=== PATIENT | female | born 1955 | race Caucasian/White ===

== ENCOUNTER → 2023-08-22 09:01 | Outpatient (REF) | payer MEDICARE, OTHER, SELFPAY | LOC: RAD 09:01 | PROVIDERS: ATTENDING PHYSICIAN Nurse Practitioner Adult Health | DX: M25.512 Pain in left shoulder (principal) | CPT/HCPCS: 73030 ==

== ENCOUNTER 2023-09-26 04:09 | Emergency (ER) | payer MEDICARE, OTHER, SELFPAY ==
[2023-09-26 04:10] VITALS: BP 170/102
[2023-09-26 04:27] VITALS: BMI 39.2
[2023-09-26 04:31] VITALS: BP 162/77
[2023-09-26] MEDS: NSS 1000 IV (04:32)
[2023-09-26] MEDS: ZOFRAN 4 MG IV (04:40)
[2023-09-26] MEDS: TORADOL 30 MG IV (04:40)
[2023-09-26 04:43] LABS: % Basophils 0.6 % (0-2); % Eosinophils 3.1 % (0-6); % Immature Granulocytes 0.4 % (0-0.5); % Lymphocytes 25.1 % (20.5-51.1); % Monocytes 9.8 % (1.7-9.3); Absolute Basophils 0.1 10^3/uL (0-0.2); Absolute Eosinophils 0.3 10^3/uL (0-0.7); Absolute Lymphocytes 2.5 10^3/uL (1.2-3.4); Absolute Neutrophils 6.1 10^3/uL (1.4-6.5); Hematocrit 41.5 % (37.0-47.0); Mean Corp Hgb Conc. 33.7 g/dL (33.0-37.0); Mean Corpuscular Hgb 30.4 pg (27.0-31.0); Mean Corpuscular Volume 90.2 fL (81.0-99.0); Mean Platelet Volume 9.2 fL (7.4-10.4); Nucleated Red Blood Cells % 0 %; Platelet Count 261 10^3/uL (130-400); Red Cell Dist. Width 13.4 % (11.5-14.5)
[2023-09-26 04:44] LABS: Urine Albumin Negative (Neg - Trace); Urine Bilirubin Negative (Negative); Urine Character Clear (Clear); Urine Color Yellow; Urine Glucose Negative (Negative); Urine Ketone Negative (Negative); Urine Leukocyte Trace (Negative); Urine Nitrite Negative (Negative); Urine Occult Blood 2+ (Negative); Urine Urobilinogen Negative (Neg - 1+)
--- NOTE | 2023-09-26 04:45 | ED.GENMED ---
Addendum entered and electronically signed by Cedrick Richardson PA-C 09/28/23 07:18:
Urine culture positive for greater than 100,000 colony-forming units of E. coli. Patient has many antibiotic allergies many of which include an anaphylactic reaction. Patient cannot tolerate sulfa even though it is not listed on her chart.
Patient know she can tolerate doxycycline. Will prescribe this pending sensitivities.
Original Note:
History of Present Illness
<ADRIÁN Lemus - Last Filed: 09/26/23 04:58>
General
Chief Complaint: Flank Pain
Source: patient
Exam Limitations: none
Time Seen by Provider: 09/26/23 04:37
Nursing documentation reviewed up to this point in time: agreed with
Travel History
Have you had any contact with someone who has COVID-19?: No
Do you have any symptoms of coronavirus? Fever > 100 degrees, chills, cough, shortness of breath, sore throat, loss of taste or smell, muscle aches, or headache?: No
History of Present Illness
History of Present Illness:
patient is a 68 y/o female with pmh of HTN presenting with flank pain x 10 hours. Patient states the pain is localized to the left flank. Patient states the pain comes and goes and does not radiate. patient admits she was at work when the pain
suddenly came on. Patient admits to taking advil with no help. Patient admits to associated nausea with no episodes of vomiting. Patient admits to associated chills but never took temperature at home. Patient denies change in diet or medications.
Patient admits to a history of kidney stones. Patient denies dysuria, blood in the urine, V/D/C, SOB, CP, AL. patient denies smoking or alcohol in the last 48 hrs.
Past History
<ADRIÁN Lemus - Last Filed: 09/26/23 04:58>
Past History
ED Past Medical History: Asthma (Asthmatic bronchitis), HTN, Seizures (only in teens around her menses, none since. Never on medication for seizures) and Other (Obstructive sleep apnea)
ED Past Surgical History: Cholecystectomy and Gynecological
Social History
Tobacco: Smoker
Alcohol: None
Personal:
Living: with family
Employment: Employed
Family History
Family History: Other (Noncontributory)
Review of Systems
<ADRIÁN Lemus - Last Filed: 09/26/23 04:58>
Review of Systems
Constitutional: Reports chills
Respiratory: Reports no symptoms
Cardiac: Reports no symptoms
ABD/GI: Reports no symptoms
: Reports flank pain
Phy Exam
<ADRIÁN Lemus - Last Filed: 09/26/23 04:58>
General Physical Exam
General Presentation: well appearing and no apparent distress
General Skin: warm and dry
General Habitus: normal
General Mental: alert
General Hydration: appears well hydrated
ENT Exam
ENT Exam: EOMI, pharynx normal, neck supple and normocephalic
Eye Exam
Eye Exam: PERRL, cornea clear and conjunctiva normal
Cardiovascular Exam
Cardiovascular Exam: regular rate/rhythm, no edema, no murmur and normal peripheral pulses
Pulmonary Exam
Pulmonary Exam: lungs clear, no respiratory distress, no rales, no crackles, no rhonchi, no stridor, no wheezing and no cough
Gastrointestinal Exam
Gastrointestinal Exam: normal bowel sounds, non tender, soft, no organomegaly, no pulsatile mass and non distended
Genitourinary Exam Female
Exam Female: other (CVA tenderness)
Neurological Exam
Neurological Exam: alert, oriented x3, no motor deficits and speech normal
Musculoskeletal Exam
Musculoskeletal Exam: full ROM and no edema
Skin Exam
Skin Exam: normal color, warm/dry, no rash and no petechia
Psychiatric Exam
Psychiatric Exam: normal mood/affect
Course
<ST AllanNY - Last Filed: 09/26/23 04:58>
Orders/Labs/Results
Orders:
Orders
09/26/23 04:30
CMP [Comprehensive Metabolic Panel] Urgent
Complete Blood Count/With Diff Urgent
Urinalysis Reflex To Culture Urgent
Date Specimen was Collected: 09/26/23
Time Specimen was Collected: 04:23
Urine Microscopic Reflex Cult Urgent
Urine Culture Urgent
TIM Source: U
Specimen Description:
Date Specimen was Collected: 09/26/23
Time Specimen was Collected: 04:23
09/26/23 04:32
0.9% Sodium Chloride 1000 ml [Nss] 1,000 ml IV BOLUS
09/26/23 04:36
Ketorolac [Toradol] 30 mg IV NOW STA
Ondansetron Injectable [Zofran] 4 mg IV NOW STA
09/26/23 04:37
CT Abd/pel Without Iv Or Oral Urgent
Comment:
Reason For Exam: left flank pain
Abnormal Lab Results
09/26/23
04:30
Absolute Monos (auto) 1.0 H 10^3/uL
(0.1-0.6)
Monocytes % 9.8 H %
(1.7-9.3)
Glucose 127 H mg/dl
(70-99)
Ur Occult Blood Reflex 2+ A
(Negative)
Leukocyte Esterase Rfl Trace A
(Negative)
Urine RBC 16-20 A /HPF
(0-2)
Urine Bacteria (Reflex) Moderate A
(Negative)
09/26/23 04:30
09/26/23 04:30
Vital Signs
Initial and Last Documented VS:
Initial Vital Signs
Temp Pulse Resp BP Pulse Ox
97.4 F 74 24 170/102 98
09/26/23 04:10 09/26/23 04:10 09/26/23 04:10 09/26/23 04:10 09/26/23 04:10
Last Documented Vital Signs
Temp Pulse Resp BP Pulse Ox
97.4 F 70 18 144/76 97
09/26/23 04:10 09/26/23 05:30 09/26/23 05:30 09/26/23 05:30 09/26/23 05:30
<Shanita Mcrae, DO - Last Filed: 09/26/23 05:57>
Orders/Labs/Results
Orders:
Orders
09/26/23 04:30
CMP [Comprehensive Metabolic Panel] Urgent
Complete Blood Count/With Diff Urgent
Urinalysis Reflex To Culture Urgent
Date Specimen was Collected: 09/26/23
Time Specimen was Collected: 04:23
Urine Microscopic Reflex Cult Urgent
Urine Culture Urgent
TIM Source: U
Specimen Description:
Date Specimen was Collected: 09/26/23
Time Specimen was Collected: 04:23
09/26/23 04:32
0.9% Sodium Chloride 1000 ml [Nss] 1,000 ml IV BOLUS
09/26/23 04:36
Ketorolac [Toradol] 30 mg IV NOW STA
Ondansetron Injectable [Zofran] 4 mg IV NOW STA
09/26/23 04:37
CT Abd/pel Without Iv Or Oral Urgent
Comment:
Reason For Exam: left flank pain
Abnormal Lab Results
09/26/23
04:30
Absolute Monos (auto) 1.0 H 10^3/uL
(0.1-0.6)
Monocytes % 9.8 H %
(1.7-9.3)
Glucose 127 H mg/dl
(70-99)
Ur Occult Blood Reflex 2+ A
(Negative)
Leukocyte Esterase Rfl Trace A
(Negative)
Urine RBC 16-20 A /HPF
(0-2)
Urine Bacteria (Reflex) Moderate A
(Negative)
09/26/23 04:30
09/26/23 04:30
Vital Signs
Initial and Last Documented VS:
Initial Vital Signs
Temp Pulse Resp BP Pulse Ox
97.4 F 74 24 170/102 98
09/26/23 04:10 09/26/23 04:10 09/26/23 04:10 09/26/23 04:10 09/26/23 04:10
Last Documented Vital Signs
Temp Pulse Resp BP Pulse Ox
97.4 F 70 18 144/76 97
09/26/23 04:10 09/26/23 05:30 09/26/23 05:30 09/26/23 05:30 09/26/23 05:30
<ADRIÁN Lemus - Last Filed: 09/26/23 04:58>
MDM/Problems Addressed
Differential Diagnosis Includes:
kidney stone
pyelonephritis
muscle strain
MDM/Problems Addressed:
flank pain
<ADRIÁN Lemus - Last Filed: 09/26/23 04:58>
*Critical Care Note
Total Time (30-74mins, 75-104mins- exclusive of procedures): Not Applicable
<Shanita Mcrae DO - Last Filed: 09/26/23 05:57>
*Radiology
Radiology exam reviewed: radiology read reviewed
*Pulse Oximetry
Patient hypoxic: no
ED Attending Note
<ADRIÁN Lemus - Last Filed: 09/26/23 04:58>
-
Portions of this chart may have been created with voice recognition software.� Occasional wrong word or��sound alike� substitutions may have occurred due to the inherent limitations of voice recognition software.
<Shanita Mcrae, DO - Last Filed: 09/26/23 05:57>
ED Attending Note
Patient seen and examined by attending physician: Yes
I performed the substantive portion of visit, reviewed & personally made and approve the management plan that is documented in note by myself or ROB.: Yes
I performed a history and physical exam of patient and discussed management with resident, I reviewed resident's note and agree with documented findings and plan of care.: Yes
ED Attending Note:
This is a 68-year-old woman who has prior history of kidney stones who complains of left flank pain that began mildly yesterday evening, she took a dose of ibuprofen around 6 PM. She then awoke around 3 AM with acute left flank pain that has been
persistent accompanied with nausea without vomiting. Left flank pain feels similar to previous episodes of renal colic. She has had no fever, no dysuria and urgency and or hematuria. She does admit to feeling somewhat restless, unable to find a
comfortable position. Unclear if movement worsens her left flank pain. She denies injury nor fall.
GENERAL: Alert , in no apparent distress
EYE: anicteric. brown nevus right upper eyelid
NECK: Supple, nontender, no meningismus, no significant adenopathy.
ENT: oral mucosa is moist. No rhinorrhea.
CARDIAC: Regular rate and rhythm. no murmur.
LUNGS: Clear breath sounds bilaterally, no acute respiratory distress, no wheezes/rales/rhonchi
ABDOMEN: Soft, nondistended, without focal tenderness, no r/g, mild to moderate left CVA tenderness to percussion. Normoactive BS.
NEUROLOGICAL: Alert and oriented x3, no focal neuro deficits. Gait is steady.
SKIN: Warm and dry, normal color, skin intact. No rash.
MUSCULOSKELETAL: No C/C/E. peripheral pulses are full and equal b/l. No palpable tenderness.
PSYCH: Normal and appropriate interaction.
Concern for acute left renal colic, left ureteric stone. Other consideration is pyelonephritis, musculoskeletal pain.
Will medicate for pain and nausea.
Labs are pending as is urinalysis.
Will check CT abdomen and pelvis.
09/26/2023 0545 AM
Patient is much more comfortable after Toradol and no further nausea.
CAT scan shows a questionable 1 mm stone at the left UVJ versus artifact, no proximal ureteral stone nor hydronephrosis.
Labs are unremarkable. Urinalysis does show +2 blood, 16-20 RBCs, moderate bacteria but only 6-10 WBCs and greater than 30 squamous epithelial cells more consistent with contaminant.
Due to hematuria patient could potentially have a tiny distal stone but with no evidence of hydronephrosis, renal colic/left flank pain is more suspected. This may be musculoskeletal pain in nature.
Recommend she stay well-hydrated on a daily basis, will treat renal colic versus musculoskeletal pain with a short course of Toradol.
Prompt follow-up with PCP for recheck.
Discharge Plan
Departure
Patient Disposition: Home (Routine Discharge)
Date of Disposition: 09/26/23
Time of Disposition: 05:50
Patient with high blood pressure during this ER visit?: No
Condition: Good
Discharge Problem:
Calculus of distal left ureter, Acute left flank pain
Instructions: Kidney Stones (DC), Flank Pain (DC)
Prescriptions:
New
ketorolac 10 mg tablet
10 mg PO QID PRN (Reason: pain) Qty: 20 0RF
ondansetron 4 mg tablet,disintegrating
4 mg PO QID PRN (Reason: nausea and vomiting) Qty: 20 0RF
No Action
amlodipine 5 MG tablet
5 mg PO DAILY
Referrals:
Lidia Noe CRNP [Family Provider] - Call in 1-3 days for appt
Interventions
Interventions:
*Risk Screen - Suicide Last Done: 09/26/23 04:10
*General Assessment Last Done: 09/26/23 04:22
*Neglect/Abuse Screening Last Done: 09/26/23 04:10
ED- Fall Risk Assessment Last Done: 09/26/23 04:55
*ED COVID-19 Vaccine History Last Done: 09/26/23 04:22
WM-Cbkakz-Zqgilkweim Assessment Last Done: 09/26/23 04:55
ED-Female Genitourinary Assessment Last Done: 09/26/23 04:55
[2023-09-26 04:57] LABS: ALT (SGPT) 20 U/L (0-35); AST (SGOT) 27 U/L (14-36); Albumin 4.3 g/dl (3.5-5.0); Alkaline Phosphatase 83 U/L (38-126); Blood Urea Nitrogen 17 mg/dl (7-17); Calcium 9.5 mg/dl (8.4-10.2); Carbon Dioxide 26 mmol/L (22-30); Chloride 106 mmol/L (98-107); Estimated Creatinine Clearance 85 ml/min; Glucose 127 mg/dl (70-99); Potassium 3.9 mmol/L (3.5-5.1); Sodium 138 mmol/L (135-145); Total Bilirubin 0.4 mg/dl (0.2-1.3); Total Protein 6.9 g/dl (6.3-8.2); eGFR > 60.00
[2023-09-26 04:59] LABS: Urine Squamous Cell >30 /LPF (Few)
[2023-09-26 05:08] LABS: Urine Bacteria Moderate (Negative); Urine Red Blood Cell 16-20 /HPF (0-2)
[2023-09-26 05:30] VITALS: BP 144/76
== END 2023-09-26 06:06 | disposition home or self-care (01) ==
LOC: EMR 04:09
PROVIDERS: EMERGENCY PHYSICIAN Emergency Medicine; FAMILY PHYSICIAN Nurse Practitioner Adult Health
DX: N20.2 Calculus of kidney with calculus of ureter (principal); R10.9 Unspecified abdominal pain; I10 Essential (primary) hypertension; J45.909 Unspecified asthma, uncomplicated; G40.909 Epilepsy, unspecified, not intractable, without status epilepticus; F17.200 Nicotine dependence, unspecified, uncomplicated; Z87.442 Personal history of urinary calculi; Z90.49 Acquired absence of other specified parts of digestive tract
CPT/HCPCS: 99284; 96374; 96375; 96361; 74176; 80053; 81003; 81015; 85025; 87077; 87086; 87186

== ENCOUNTER → 2023-12-20 07:01 | Outpatient (REF) | payer MEDICARE, OTHER, SELFPAY ==
[2023-12-20 07:52] LABS: % Basophils 0.9 % (0-2); % Immature Granulocytes 0.3 % (0-0.5); % Lymphocytes 26.4 % (20.5-51.1); % Monocytes 9.1 % (1.7-9.3); % Neutrophils 60.3 % (42.2-75.2); Absolute Basophils 0.1 10^3/uL (0-0.2); Absolute Eosinophils 0.2 10^3/uL (0-0.7); Absolute Lymphocytes 1.8 10^3/uL (1.2-3.4); Absolute Monocytes 0.6 10^3/uL (0.1-0.6); Absolute Neutrophils 4.1 10^3/uL (1.4-6.5); Hematocrit 40.9 % (37.0-47.0); Hemoglobin 13.8 g/dL (12.0-16.0); Mean Corp Hgb Conc. 33.7 g/dL (33.0-37.0); Mean Corpuscular Hgb 29.9 pg (27.0-31.0); Mean Corpuscular Volume 88.7 fL (81.0-99.0); Mean Platelet Volume 9.5 fL (7.4-10.4); Nucleated Red Blood Cells % 0 %; Platelet Count 246 10^3/uL (130-400); Red Blood Cell Count 4.61 10^6/uL (4.20-5.40); Red Cell Dist. Width 13.4 % (11.5-14.5); White Blood Cell Count 6.7 10^3/uL (4.8-10.8)
[2023-12-20 08:30] LABS: ALT (SGPT) 21 U/L (0-35); AST (SGOT) 28 U/L (14-36); Albumin 3.9 g/dl (3.5-5.0); Alkaline Phosphatase 57 U/L (38-126); Blood Urea Nitrogen 16 mg/dl (7-17); Calcium 9.9 mg/dl (8.4-10.2); Carbon Dioxide 26 mmol/L (22-30); Chloride 106 mmol/L (98-107); Glucose 105 mg/dl (70-99); HDL Cholesterol 62 mg/dl; LDL Cholesterol, Calculated 16 mg/dl; Potassium 4.4 mmol/L (3.5-5.1); Sodium 139 mmol/L (135-145); Total Bilirubin 0.5 mg/dl (0.2-1.3); Total Cholesterol 100 mg/dl (50-199); Total Protein 6.5 g/dl (6.3-8.2); Triglyceride 111 mg/dl (10-149); Very Low Density Lipoprotein 22 mg/dl (0-30); eGFR > 60.00
[2023-12-20 08:39] LABS: Glycohemoglobin (HgbA1c) 6.1 % (4.0-5.6)
[2023-12-20 08:42] LABS: Vitamin D, 25-OH*** 26.4 ng/mL (30-80)
[2023-12-20 08:55] LABS: TSH Reflex To Free T4 2.31 uIU/ml (0.47-4.68)
== END ==
LOC: REG 07:01
PROVIDERS: ATTENDING PHYSICIAN Nurse Practitioner Adult Health
DX: Z00.00 Encounter for general adult medical examination without abnormal findings (principal); Z79.899 Other long term (current) drug therapy; Z13.29 Encounter for screening for other suspected endocrine disorder; E55.9 Vitamin D deficiency, unspecified; R73.01 Impaired fasting glucose; I10 Essential (primary) hypertension
CPT/HCPCS: 36415; 80053; 80061; 82306; 83036; 84443; 85025

== ENCOUNTER → 2024-04-03 13:03 | Outpatient (REF) | payer MEDICARE, OTHER, SELFPAY | LOC: WDC 13:03 | PROVIDERS: ATTENDING PHYSICIAN Nurse Practitioner Adult Health | DX: Z00.00 Encounter for general adult medical examination without abnormal findings (principal); Z12.31 Encounter for screening mammogram for malignant neoplasm of breast; M81.0 Age-related osteoporosis without current pathological fracture | CPT/HCPCS: 77063; 77067; 77080 ==

== ENCOUNTER → 2024-04-14 11:05 | Outpatient (REF) | payer MEDICARE, OTHER, SELFPAY | LOC: MRI 3T 11:05 | PROVIDERS: ATTENDING PHYSICIAN Nurse Practitioner Adult Health | DX: M25.512 Pain in left shoulder (principal); Z00.00 Encounter for general adult medical examination without abnormal findings | CPT/HCPCS: 73221 ==

== ENCOUNTER → 2025-05-08 07:46 | Outpatient (REF) | payer MEDICARE, OTHER, SELFPAY ==
[2025-05-08 09:43] LABS: Hematocrit 45.0 % (37.0-47.0); Hemoglobin 14.6 g/dL (12.0-16.0); Mean Corp Hgb Conc. 32.4 g/dL (33.0-37.0); Mean Corpuscular Volume 92.6 fL (81.0-99.0); Nucleated Red Blood Cells % 0 %; Platelet Count 286 10^3/uL (130-400); Red Cell Dist. Width 13.2 % (11.5-14.5)
[2025-05-08 10:42] LABS: ALT (SGPT) 22 U/L (0-35); AST (SGOT) 24 U/L (14-36); Albumin 4.2 g/dl (3.5-5.0); Alkaline Phosphatase 60 U/L (38-126); Blood Urea Nitrogen 16 mg/dl (7-17); Calcium 9.5 mg/dl (8.4-10.2); Carbon Dioxide 30 mmol/L (22-30); Chloride 103 mmol/L (98-107); Glucose 111 mg/dl (70-99); HDL Cholesterol 65 mg/dl; LDL Cholesterol, Calculated 35 mg/dl; Potassium 4.7 mmol/L (3.5-5.1); Sodium 141 mmol/L (135-145); Total Protein 6.8 g/dl (6.3-8.2); Very Low Density Lipoprotein 27 mg/dl (0-30); eGFR > 60.00
[2025-05-08 15:20] LABS: Vitamin D, 25-OH*** 68.4 ng/mL (30-80)
== END ==
LOC: REG 07:46
PROVIDERS: ATTENDING PHYSICIAN Nurse Practitioner Adult Health
DX: I10 Essential (primary) hypertension (principal); E55.9 Vitamin D deficiency, unspecified; R73.03 Prediabetes; R73.01 Impaired fasting glucose; Z00.00 Encounter for general adult medical examination without abnormal findings
CPT/HCPCS: 36415; 80053; 80061; 82306; 84443; 85025

== ENCOUNTER → 2025-05-17 08:03 | Outpatient (REF) | payer MEDICARE, OTHER, SELFPAY ==
[2025-05-17 09:52] LABS: Glycohemoglobin (HgbA1c) 6.1 % (4.0-5.9)
== END ==
LOC: REG 08:03
PROVIDERS: ATTENDING PHYSICIAN Nurse Practitioner Adult Health
DX: Z00.00 Encounter for general adult medical examination without abnormal findings (principal); R73.03 Prediabetes
CPT/HCPCS: 36415; 83036